=== PATIENT | male | born 2000 | race Caucasian/White ===

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

== ENCOUNTER 2021-07-20 17:48 | Emergency (ER) | payer OTHER ==
[~2021-07-20] VITALS: Ht 188 cm; Wt 89.2 kg
[~2021-07-20 17:48] MED LIST: VITAMINS
[2021-07-20] MEDS ORDERED: FLUORESCEIN OPHTHALMIC 1 MG STRIP ONE (21:39)
[2021-07-20] MEDS ORDERED: PROPARACAINE OPHTH 0.5%, 15ML ONE (21:39)
[2021-07-20] MEDS ORDERED: PROPARACAINE OPHTH 0.5%, 15ML RIGHTEYE ONE (22:00)
[2021-07-20] MEDS ORDERED: FLUORESCEIN OPHTHALMIC 1 MG STRIP RIGHTEYE ONE (22:00)
[2021-07-20 22:07] VITALS: BP 118/72
--- NOTE | 2021-07-20 22:07 | NUR ---
Patient given discharge instructions and they have confirmed that they understand the instructions. Patient ambulatory with steady gait. NAD, all questions answered appropriately, denies additional needs at this time. No personal belongings left in room after discharge.
== END 2021-07-20 22:10 | disposition home or self-care (01) ==
LOC: ED 22:03
DX: S01.111A Laceration without foreign body of right eyelid and periocular area, initial encounter (principal); S05.01XA Injury of conjunctiva and corneal abrasion without foreign body, right eye, initial encounter; X58.XXXA Exposure to other specified factors, initial encounter; Y93.89 Activity, other specified; Y92.89 Other specified places as the place of occurrence of the external cause; Y99.8 Other external cause status
CPT/HCPCS: 99283